=== PATIENT | male | born 1940 | race African-American/Black ===

== ENCOUNTER 2018-01-02 17:08 | Inpatient (IN) | payer MEDICARE, MEDICAID ==
[~2018-01-02] VITALS: Ht 172.7 cm; Wt 76.6 kg
[2018-01-02] MEDS: SODIUM CHLORIDE 0.9% 1,000ML IVBOLUS ONE ×2 (17:00→17:50)
[2018-01-02] MEDS ORDERED: MULT-516 PO (17:37)
[2018-01-02] MEDS ORDERED: ASPI-515 PO (17:37)
[2018-01-02] MEDS ORDERED: GABA300C10 PO (17:37)
[2018-01-02] MEDS ORDERED: SODI650T PO (17:37)
[2018-01-02] MEDS ORDERED: VIT D3 PO (17:37)
[2018-01-02] MEDS ORDERED: DOCU-180 PO (17:37)
[2018-01-02] MEDS ORDERED: PRAV10TA2 PO (17:37)
[2018-01-02] MEDS ORDERED: LISI-170 PO (17:37)
[2018-01-02] MEDS ORDERED: VIT B1 PO (17:37)
[2018-01-02] MEDS ORDERED: NOREPINEPHRINE 4 MG in SODIUM CHLORIDE 0.9% 246 ML IV PRN (17:54)
[2018-01-02] MEDS ORDERED: SODIUM CHLORIDE FLUSH 10ML SYR IVF ONE (18:00)
[2018-01-02 18:27] LABS: BASOPHILS # (AUTO) 0.03 x10^3/uL (0-0.1); BASOPHILS % (AUTO) 0 % (0-1); EOSINOPHILS # (AUTO) 0.13 x10^3/uL (0-0.4); EOSINOPHILS % (AUTO) 1 % (1-7); LYMPHOCYTES # (AUTO) 1.08 x10^3/uL (1-3.4); LYMPHOCYTES % (AUTO) 10 % (22-44); MD NO; MEAN CORPUSCULAR HEMOGLOBIN 30.5 pg (27.5-34.5); MEAN CORPUSCULAR HGB CONC 33.6 g/dL (33.2-36.2); MEAN CORPUSCULAR VOLUME 90.8 fL (81-97); MEAN PLATELET VOLUME 7.7 fL (7.4-10.4); MONOCYTES # (AUTO) 0.65 x10^3/uL (0.2-0.8); MONOCYTES % (AUTO) 6 % (2-9); NEUTROPHILS # (AUTO) 8.89 x10^3/uL (1.8-6.8); NEUTROPHILS % (AUTO) 83 % (42-75); PLATELET COUNT 272 x10^3/uL (130-400); RED CELL DISTRIBUTION WIDTH 14.5 % (9.4-14.8)
[2018-01-02 18:28] LABS: ALANINE AMINOTRANSFERASE 14 U/L (12-78); ALBUMIN 2.9 g/dL (3.4-5.0); ANION GAP 9 mmol/L (5-15); CALCIUM 7.1 mg/dL (8.5-10.1); CHLORIDE 118 mmol/L (98-107); CREATININE 5.68 mg/dL (0.7-1.3)
[2018-01-02 18:32] LABS: ALKALINE PHOSPHATASE 49 U/L (45-117); BILIRUBIN,TOTAL 0.2 mg/dL (0.2-1.0); TOTAL PROTEIN 6.3 g/dL (6.4-8.2); TROPONIN I < 0.015 ng/mL (0.000-0.045)
[2018-01-02 18:51] LABS: INTERNATIONAL NORMALIZED RATIO 1.08 (0.93-1.1); PROTHROMBIN TIME 11.2 Seconds (9.6-11.5)
[2018-01-02] MEDS ORDERED: CEFTRIAXONE 1,000 MG IV ONE (19:00)
[2018-01-02] MEDS ORDERED: AZITHROMYCIN 500 MG in SODIUM CHLORIDE 0.9% 250 ML IV ONE (19:00)
[2018-01-02] MEDS ORDERED: OMNIPAQUE 350 MG/ML, 100ML BOTTLE ONE (19:01)
[2018-01-02] MEDS ORDERED: CEFTRIAXONE PMX 1GM/50ML 50 ML ONE (19:17)
[2018-01-02] MEDS ORDERED: SODIUM CHLORIDE 0.9% 1,000ML IVBOLUS ONE (19:30)
[2018-01-02] MEDS ORDERED: SODIUM CHLORIDE 0.9% 1,000 ML IV ONE (19:30)
[2018-01-02] MEDS ORDERED: BISACODYL 10 MG SUPP PR PRN (20:00)
[2018-01-02] MEDS ORDERED: ONDANSETRON 2MG/ML, 2ML IVPush PRN (20:00)
[2018-01-02] MEDS ORDERED: SODIUM POLY SULFONATE UDC 15 GM/60 ML PO ONE ×2 (20:00→23:30)
[2018-01-02] MEDS ORDERED: POLYETHYLENE GLYCOL 17 GM PACKET PO PRN (20:00)
[2018-01-02] MEDS ORDERED: ACETAMINOPHEN 325 MG TABLET PO PRN (20:00)
[2018-01-02] MEDS: SODIUM BICARB 8.4%,50ML SYR. 150 MEQ in DEXTROSE 5% 1,000 ML IV SCH (21:48)
[2018-01-02 21:50] VITALS: BP 99/63
[2018-01-03 00:57] LABS: MICROSCOPIC NOT IND
[2018-01-03 00:58] LABS: CREATININE,URINE RANDOM 87.4 mg/dL
[2018-01-03 01:03] LABS: CULTURE INDICATED? NO
[2018-01-03 01:07] VITALS: BP 122/70
[2018-01-03 01:07] LABS: OCCULT BLOOD NEGATIVE (NEGATIVE)
[2018-01-03 03:25] VITALS: BP 124/73
[2018-01-03 05:24] LABS: BASOPHILS # (AUTO) 0.02 x10^3/uL (0-0.1); BASOPHILS % (AUTO) 0 % (0-1); EOSINOPHILS # (AUTO) 0.22 x10^3/uL (0-0.4); EOSINOPHILS % (AUTO) 3 % (1-7); LYMPHOCYTES # (AUTO) 1.33 x10^3/uL (1-3.4); LYMPHOCYTES % (AUTO) 17 % (22-44); MD NO; MEAN CORPUSCULAR HEMOGLOBIN 29.6 pg (27.5-34.5); MEAN CORPUSCULAR HGB CONC 32.9 g/dL (33.2-36.2); MEAN CORPUSCULAR VOLUME 90.1 fL (81-97); MEAN PLATELET VOLUME 7.6 fL (7.4-10.4); MONOCYTES # (AUTO) 0.53 x10^3/uL (0.2-0.8); MONOCYTES % (AUTO) 7 % (2-9); NEUTROPHILS # (AUTO) 5.76 x10^3/uL (1.8-6.8); NEUTROPHILS % (AUTO) 73 % (42-75); PLATELET COUNT 318 x10^3/uL (130-400); RED BLOOD COUNT 2.99 x10^6/uL (4.38-5.82); RED CELL DISTRIBUTION WIDTH 14.8 % (9.4-14.8)
[2018-01-03 05:26] LABS: ALBUMIN 3.2 g/dL (3.4-5.0); ANION GAP 8 mmol/L (5-15); CALCIUM 8.4 mg/dL (8.5-10.1); CHLORIDE 120 mmol/L (98-107)
[2018-01-03 05:31] LABS: ALANINE AMINOTRANSFERASE 14 U/L (12-78); ALKALINE PHOSPHATASE 44 U/L (45-117); BILIRUBIN,TOTAL 0.3 mg/dL (0.2-1.0); TOTAL PROTEIN 6.6 g/dL (6.4-8.2)
[2018-01-03 07:24] VITALS: BP 146/75
[2018-01-03] MEDS: SENNA/DOCUSATE TABLET PO SCH (08:55)
[2018-01-03] MEDS ORDERED: SODIUM BICARBONATE 650 MG TABLET PO SCH (09:00)
[2018-01-03] MEDS: SODIUM BICARB 8.4%,50ML SYR. 150 MEQ in DEXTROSE 5% 1,000 ML IV SCH (09:35)
[2018-01-03] MEDS: DEXTROSE 5% 1,000 ML IV SCH ×2 (12:20→20:40)
[2018-01-03 13:01] VITALS: BP 144/71
[2018-01-03 19:18] VITALS: BP 149/68
[2018-01-03] MEDS: PRAVASTATIN 20 MG TABLET PO SCH (22:10)
[2018-01-04 01:03] VITALS: BP 156/77
[2018-01-04] MEDS: DEXTROSE 5% 1,000 ML IV SCH (04:23)
[2018-01-04 05:47] LABS: CHLORIDE 108 mmol/L (98-107)
[2018-01-04 06:04] LABS: % IRON SATURATION 18 % (20-55); ALBUMIN 3.2 g/dL (3.4-5.0); ANION GAP 9 mmol/L (5-15); CALCIUM 8.5 mg/dL (8.5-10.1); CREATININE 2.02 mg/dL (0.7-1.3); IRON LEVEL 48 mcg/dL (65-175); TOTAL IRON BINDING CAPACITY 270 mcg/dL (250-450)
[2018-01-04 07:37] VITALS: BP 173/81
[2018-01-04] MEDS: CHOLECALCIFEROL 1,000 UNIT TABLET PO SCH (08:39)
[2018-01-04] MEDS: ASPIRIN 81 MG TABLET EC PO SCH (08:39)
[2018-01-04] MEDS: MULTIVITAMIN 1 TABLET PO SCH (08:39)
[2018-01-04] MEDS: GABAPENTIN 300 MG CAPSULE PO SCH (08:39)
[2018-01-04] MEDS: SENNA/DOCUSATE TABLET PO SCH (08:40)
[2018-01-04] MEDS ORDERED: MAGNESIUM SULFATE PMX 2GM/50ML 50 ML IV ONE (10:00)
[2018-01-04] MEDS: MAGNESIUM CHLORIDE 64 MG TABLET.DR PO SCH ×2 (10:53→19:23)
[2018-01-04] MEDS: AMLODIPINE 5 MG TABLET PO SCH ×2 (10:53→19:23)
[2018-01-04 12:30] VITALS: BP 156/74
[2018-01-04 13:56] VITALS: BP 166/80
[2018-01-04] MEDS: PRAVASTATIN 20 MG TABLET PO SCH (19:23)
[2018-01-04 19:54] VITALS: BP 152/87
[2018-01-05 00:28] VITALS: BP 182/90
[2018-01-05 00:34] VITALS: BP 155/73
[2018-01-05 05:06] LABS: ANION GAP 8 mmol/L (5-15); CALCIUM 8.9 mg/dL (8.5-10.1); CHLORIDE 107 mmol/L (98-107); CREATININE 2.36 mg/dL (0.7-1.3)
[2018-01-05] MEDS: SENNA/DOCUSATE TABLET PO SCH (07:14)
[2018-01-05] MEDS: ASPIRIN 81 MG TABLET EC PO SCH (08:02)
[2018-01-05] MEDS: MAGNESIUM CHLORIDE 64 MG TABLET.DR PO SCH (08:02)
[2018-01-05] MEDS: MULTIVITAMIN 1 TABLET PO SCH (08:02)
[2018-01-05] MEDS: CHOLECALCIFEROL 1,000 UNIT TABLET PO SCH (08:02)
[2018-01-05] MEDS: GABAPENTIN 300 MG CAPSULE PO SCH (08:02)
[2018-01-05] MEDS: AMLODIPINE 5 MG TABLET PO SCH ×2 (08:02→17:01)
[2018-01-05 08:12] VITALS: BP 180/98
[2018-01-05 09:37] VITALS: BP 162/78
[2018-01-05] MEDS ORDERED: FERR-51 PO (12:24)
[2018-01-05] MEDS ORDERED: AMLO5TAB2 PO (12:24)
[2018-01-05] MEDS ORDERED: CARV6.2512 PO (12:24)
[2018-01-05 13:24] VITALS: BP 158/77
[2018-01-05] MEDS: CARVEDILOL 6.25 MG TABLET PO SCH ×2 (14:08→17:01)
[2018-01-06] MEDS ORDERED: FERROUS SULFATE 325 MG TABLET PO SCH (08:00)
== END 2018-01-05 17:13 | disposition home or self-care (01) | DRG 871 ==
LOC: ED 19:37 → EDIP 19:42 → ED 19:48 → 5SO 21:02
PROVIDERS: ADMIT Internal Medicine; ATTEND Internal Medicine
DX: A41.9 Sepsis, unspecified organism (principal); N17.0 Acute kidney failure with tubular necrosis; J15.9 Unspecified bacterial pneumonia; R65.21 Severe sepsis with septic shock; E44.0 Moderate protein-calorie malnutrition; E87.0 Hyperosmolality and hypernatremia; N18.4 Chronic kidney disease, stage 4 (severe); Z68.25 Body mass index [BMI] 25.0-25.9, adult; D63.1 Anemia in chronic kidney disease; E55.9 Vitamin D deficiency, unspecified; E78.5 Hyperlipidemia, unspecified; E86.0 Dehydration; E86.1 Hypovolemia; E87.5 Hyperkalemia; E87.8 Other disorders of electrolyte and fluid balance, not elsewhere classified; G62.9 Polyneuropathy, unspecified; I12.9 Hypertensive chronic kidney disease with stage 1 through stage 4 chronic kidney disease, or unspecified chronic kidney disease; K80.20 Calculus of gallbladder without cholecystitis without obstruction; Z87.891 Personal history of nicotine dependence; Z89.422 Acquired absence of other left toe(s); Z89.421 Acquired absence of other right toe(s)
CPT/HCPCS: 36415; 71045; 71275; 74175; 76770; 80048; 80053; 81003; 82040; 82272; 82436; 82570; 82728; 82962; 83540; 83550; 83605; 83735; 84132; 84133; 84145; 84300; 84484; 85014; 85018; 85025; 85610; 85730; 87040; 93005; 93306; 96361; 96365; 96368; J0456; J0696; J7070; Q9967; J3475; J7030; J7050